=== PATIENT | female | born 1995 | race Caucasian/White ===

== ENCOUNTER 2022-09-26 11:56 | Inpatient (IN) | payer BC ==
[2022-09-26] MEDS ORDERED: Bupivacaine/Epinephrine 0.25% 30 ML VIAL ONE (12:42)
[2022-09-26] MEDS ORDERED: Bupivacaine PF 0.5% 30 ML VIAL ONE (12:42)
[2022-09-26] MEDS ORDERED: Bupivacaine 0.25% HCL 30 ML VIAL ONE (12:42)
[2022-09-26] MEDS ORDERED: hydrALAZINE 20 MG/ML VIAL SLOW IVP PRN ×3 (12:47→20:57)
[2022-09-26] MEDS ORDERED: Promethazine HCl 25 MG/ML VIAL IM PRN ×2 (12:48→14:50)
[2022-09-26] MEDS ORDERED: Methylergonovine 0.2 MG/ML VIAL IM PRN (12:48)
[2022-09-26] MEDS ORDERED: Butorphanol Tartrate 1 MG/ML VIAL SLOW IVP PRN (12:48)
[2022-09-26] MEDS ORDERED: Lidocaine 1% (PF) 30 ML VIAL SC PRN (12:48)
[2022-09-26] MEDS ORDERED: HYDROcodone/Acetaminophen 5/325 mg Tablet PO PRN ×2 (12:48)
[2022-09-26] MEDS ORDERED: Ondansetron PF 4 MG/2 ML Vial IVP PRN ×2 (12:48→14:50)
[2022-09-26] MEDS ORDERED: Acetaminophen 500 MG TAB PO PRN (12:48)
[2022-09-26] MEDS ORDERED: Misoprostol 200 MCG TAB PR PRN (12:48)
[2022-09-26] MEDS ORDERED: Ibuprofen 800 MG TAB PO PRN (12:48)
[2022-09-26] MEDS ORDERED: Zolpidem Tartrate 5 MG TAB PO PRN (12:48)
[2022-09-26] MEDS ORDERED: Lactated Ringer's 1,000 ML IV SCH (13:00)
[2022-09-26] MEDS ORDERED: NS w/ Oxytocin 30 units 500 ML IV SCH ×2 (13:00)
[2022-09-26] MEDS ORDERED: Fentanyl 2 mcg/Bup 0.1% Cadd 100 ML ONE (13:16)
[2022-09-26 13:18] LABS: Hemoglobin 12.3 g/dL (12.0-15.5); Mean Corpuscular HGB CONC 34.5 g/dL (32.0-36.0); Mean Corpuscular Hemoglobin 29.9 pg (27.0-33.0); Mean Corpuscular Volume 86.7 fl (81.6-98.3); Mean Platelet Volume 12.5 fl (7.4-10.4); Platelet Count 193 10x3/uL (150-450); RBC Distribution Width 13.9 % (11.5-14.5); Red Blood Cell (RBC) Count 4.12 10x6/uL (3.90-5.03)
[2022-09-26 13:27] VITALS: BMI 38.3
[2022-09-26 13:51] LABS: Syphilis Antibody Nonreactive (Nonreactive); Syphilis Antibody Index 0.04 S/CO (<1.00 Non-Reactive)
[2022-09-26 13:52] LABS: HBSAg Index 0.17 S/CO (0-0.99)
[2022-09-26 13:57] LABS: Hep B Surf Ag NonReactive S/CO (NonReactive)
[2022-09-26] MEDS ORDERED: Acetaminophen 325 MG TAB PO PRN (14:50)
[2022-09-26] MEDS ORDERED: Lactated Ringer's 500 ML IV PRN (14:50)
[2022-09-26] MEDS ORDERED: Moisturizing Cream (Eucerin) 113 GM JAR TOP PRN (14:50)
[2022-09-26] MEDS ORDERED: Naloxone HCl 0.4 mg/ml Vial IVP PRN ×2 (14:50)
[2022-09-26] MEDS ORDERED: diphenhydrAMINE 50 MG/ML VIAL IVP PRN (14:50)
[2022-09-26] MEDS ORDERED: ePHEDrine Sulfate 50 MG/10 ML VIAL SLOW IVP PRN (14:50)
[2022-09-26 15:00] LABS: SARS-CoV-2 NAA Rapid Test Not Detected (NotDetected)
[2022-09-26] MEDS ORDERED: Fentanyl 2 mcg/Bupivacaine 0.1% Cassette 100 ML EPIDURAL SCH (15:00)
[2022-09-26] MEDS ORDERED: Communication Order-Pharmacy FS SCH (15:00)
[2022-09-26] MEDS ORDERED: Sodium Chloride 0.9% 100 ML ONE (15:09)
[2022-09-26] MEDS ORDERED: Penicillin G Potassium 5 MILL.UNITS VIAL ONE (15:09)
[2022-09-26] MEDS ORDERED: Penicillin G Potassium 5 MILL.UNITS in Sodium Chloride 0.9% 100 ML IVPB SCH (15:30)
[2022-09-26] MEDS: Lactated Ringer's 1,000 ML IV SCH ×2 (17:47→23:26)
[2022-09-26] MEDS: Pen G 2.5 MILL.UNITS/50 ML BAG IVPB SCH ×2 (18:56→23:27)
[2022-09-26] MEDS ORDERED: Carboprost 250 MCG/ML AMP ONE (19:10)
[2022-09-26] MEDS ORDERED: Methylergonovine 0.2 MG/ML VIAL ONE (19:10)
[2022-09-26] MEDS ORDERED: Misoprostol 200 MCG TAB ONE (19:10)
[2022-09-26] MEDS ORDERED: Milk Of Magnesia 30 ML UDCUP PO PRN (20:57)
[2022-09-26] MEDS ORDERED: Acetaminophen/Codeine 30-300mg Tablet PO PRN (20:57)
[2022-09-26] MEDS ORDERED: Bisacodyl 10 MG SUPP PR PRN (20:57)
[2022-09-26] MEDS ORDERED: Boostrix 0.5 ML (Tdap) VIAL (>/=7 yrs of age) IM ONE (20:57)
[2022-09-26] MEDS ORDERED: Lanolin Ointment 7 GM TUBE TOP PRN (20:57)
[2022-09-26] MEDS ORDERED: Docusate 100 MG CAP PO SCH (21:30)
[2022-09-27 05:11] LABS: Hemoglobin 12.4 g/dL (12.0-15.5)
[2022-09-27] MEDS: Acetaminophen/Codeine 30-300mg Tablet PO PRN ×2 (05:46→14:41)
[2022-09-27] MEDS: Ferrous Sulfate 325 MG TAB PO SCH (07:22)
[2022-09-27] MEDS: Ibuprofen 800 MG TAB PO SCH ×3 (09:24→18:54)
[2022-09-27] MEDS: Docusate 100 MG CAP PO SCH ×2 (09:25→22:38)
[2022-09-27] MEDS: Prenatal Vitamin 1 TAB PO SCH (09:25)
[2022-09-28] MEDS: Ibuprofen 800 MG TAB PO SCH ×2 (05:24→09:49)
[2022-09-28 07:51] VITALS: BP 123/64; TEMP 98.3
[2022-09-28] MEDS: Ferrous Sulfate 325 MG TAB PO SCH (09:49)
[2022-09-28] MEDS: Prenatal Vitamin 1 TAB PO SCH (09:49)
[2022-09-28] MEDS: Docusate 100 MG CAP PO SCH (09:49)
[2022-09-28] MEDS ORDERED: Measles/Mumps/Rubella 10 MCG/0.5 ML VIAL SC ONE (13:15)
== END 2022-09-28 16:05 | disposition home or self-care (01) | DRG 807 ==
LOC: CSHLD 11:56 → CSHPED 23:00
PROVIDERS: ADMIT Obstetrics & Gynecology; ATTEND Obstetrics & Gynecology
PROC: 10E0XZZ Delivery of Products of Conception, External Approach (ICD-10-PCS; principal; 2022-09-26)
PROC: 0W8NXZZ Division of Female Perineum, External Approach (ICD-10-PCS; 2022-09-26)
PROC: 10907ZC Drainage of Amniotic Fluid, Therapeutic from Products of Conception, Via Natural or Artificial Opening (ICD-10-PCS; 2022-09-26)
DX: O77.0 Labor and delivery complicated by meconium in amniotic fluid (principal); Z37.0 Single live birth; Z3A.39 39 weeks gestation of pregnancy; O69.2XX0 Labor and delivery complicated by other cord entanglement, with compression, not applicable or unspecified; O76 Abnormality in fetal heart rate and rhythm complicating labor and delivery; Z20.822 Contact with and (suspected) exposure to COVID-19
CPT/HCPCS: 36415; 51702; 85014; 85018; 85027; 86780; 86850; 86900; 86901; 87340; 88307; 90707; J0595; J2540; J2590; J3490; J7120; S0020; U0002